=== PATIENT | female | born 1990 | race Caucasian/White ===

== ENCOUNTER 2017-04-25 03:04 | Emergency (ER) | payer OTHER ==
[~2017-04-25] VITALS: Ht 167.6 cm; Wt 70.8 kg
[2017-04-25] MEDS ORDERED: ZANTAC300 MG PO (07:56)
[2017-04-25] MEDS ORDERED: ZOFRAN ODT8 MG PO (07:56)
[2017-04-25] MEDS ORDERED: FIORICET 50-301 EACH PO (07:56)
== END 2017-04-25 11:23 | disposition home or self-care (01) ==
LOC: ER 03:04
DX: K52.9 Noninfective gastroenteritis and colitis, unspecified (principal)

== ENCOUNTER 2021-07-15 09:35 | Outpatient (CLI) | payer OTHER ==
[~2021-07-15 09:35] MED LIST: FIORICET 50-301 EACH PO; ZANTAC300 MG PO; ZOFRAN ODT8 MG PO
== END 2021-07-15 09:47 | disposition home or self-care (01) ==
LOC: RAD 09:35
PROVIDERS: ATTEND Obstetrics & Gynecology
DX: R10.2 Pelvic and perineal pain (principal); N97.9 Female infertility, unspecified